=== PATIENT | female | born 1950 | race Caucasian/White ===

== ENCOUNTER 2024-12-27 14:37 | Outpatient (REF) | payer MEDICARE, SELFPAY | END 2024-12-27 14:38 | disposition home or self-care (01) | LOC: HO.XRAY 14:37 | PROVIDERS: PCP Internal Medicine; Visit Provider Psychiatry & Neurology Neurology | DX: Z13.89 Encounter for screening for other disorder (principal) ==

== ENCOUNTER 2025-01-12 14:42 | Outpatient (REF) | payer MEDICARE, SELFPAY ==
--- NOTE | ~2025-01-12 | FL_ITS ---
EXAMINATION: Modified Barium Swallow CLINICAL INFORMATION: Dysphagia. COMPARISON: None. TECHNIQUE: Modified barium swallow was performed under lateral fluoroscopy with patient in standing position. Barium mixed with solids and liquids of different consistencies was administered by the speech pathologist. Examination was recorded in the fluoroscopy suite. FINDINGS: Normal swallow function. No penetration or aspiration identified. FLUOROSCOPY TIME: 1 minute, 4 seconds Number of Spot Images: N/A DOSE AREA PRODUCT: 164.1 uGy-m2 (microgray-meter squared) FL/FL Modified Barium Swallow IMPRESSION: No evidence of laryngeal penetration, glottic or subglottic aspiration. Refer to the speech therapy report for further clarification. Electronically signed by: Enrique Gomez MD 01/12/2025 03:53 PM EDT
--- OUTSIDE RECORDS SUMMARY | 2025-01-12 16:55 | XMS_ITS | Clinical Summary ---
Author Organization [facility] Address [address] [place] [address] Care Team Providers Care Sandal Parts Assembler Name Role Phone Aisha Fontana MD Primary Care Provider +1- [phone] Allergies Active Allergy Reactions Criticality Noted Date Comments Latex Hives,Rash/Dermatitis Medium 11/09/2018 Medications Medication Sig Dispensed Refills Start Date End Date Status timolol (TIMOPTIC) 0.5 % ophthalmic solution Administer 1 drop to both eyes 2 times a day. Active sertraline (ZOLOFT) 50 MG tablet Take 1.5 tablets (75 mg total) by mouth daily. 04/28/2024 Active traZODone (DESYREL) 50 MG tablet TAKE 2 TABLETS BY MOUTH DAILY AT BEDTIME Active carbidopa-levodopa (SINEMET) 25-100 MG per tabletIndications:Par kinson's disease without dyskinesia or fluctuating manifestations (HCC) Take 1 tablet by mouth 3 (three) times a day. 270 tablet 3 06/28/2024 Active Active Problems Problem Noted Date Diagnosed Date Anxiety 06/28/2024 Basal cell carcinoma (BCC) 06/28/2024 Hyperlipidemia 06/28/2024 Parkinson's disease without dyskinesia or fluctuating manifestations 06/28/2024 Leukopenia 2023 Dyspnea on exertion 09/23/2022 Essential hypertension 11/16/2020 Overview (06/28/2024): Diet controlled Last Assessment & Plan: Well-controlled, continue low-sodium diet Graves' disease in remission 10/28/2018 Overview (06/28/2024): Diagnosed in 2018, treated successfully with methimazole. Had ophthalopathy Last Assessment & Plan: Asymptomatic, recheck TSH Osteoporosis of lumbar spine 10/28/2018 Overview (06/28/2024): Dx by previous PCP, no treatment recommend, repeat bone density 2021 spine T score -2.5, femur -2.2 Last Assessment & Plan: Fracture risk was reviewed. Recommend continued diet and exercise. She will discuss this with her disease management nurse at an upcoming appointment. 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 Family History Medical History Relation Name Comments Liver disease Brother No Known Problems Daughter 1 No Known Problems Daughter 2 COPD Father Hyperlipidemia Father Hypertension Father Varicose Veins Father Hyperlipidemia Mother Hypertension Mother Tremor Mother No Known Problems Sister Relation Name Status Comments Brother Alive Daughter 1 Alive Daughter 2 Alive Father Mother Sister Alive Social History Tobacco Use Types Packs/Day Years Used Date Smoking Tobacco: Never Smokeless Tobacco: Never Alcohol Use Standard Drinks/Week Comments Not Currently 0 (1 standard drink = 0.6 oz pur e alcohol) Sex and Gender Information Value Date Recorded Sex Assigned at Not on file Gender Identity Not on file Sexual Orientation Not on file Last Filed Vital Signs Vital Sign Reading Time Taken Comments Blood Pressure - - Pulse - - Temperature - - Respiratory Rate - - Oxygen Saturation 91% 06/28/2024 1:54 PM EDT Inhaled Oxygen Concentration - - Weight 67.1 kg (148 lb) 06/28/2024 1:54 PM EDT Height 171.5 cm (5' 7.5 ) 06/28/2024 1:54 PM EDT Body Mass Index 22.84 06/28/2024 1:54 PM EDT Plan of Treatment Health Maintenance Due Date Last Done Comments Hepatitis C Virus Screening 1950 DTaP/Tdap/Td Vaccines (1 - Tdap) 01/07/1968 Mammogram 1989 Colonoscopy 1994 Pneumococcal Vaccines 50+ (1 of 1 - PCV) 1999 Zoster (Shingles) Vaccine (1 of 2) 1999 DXA Bone Density (Females,Ages 65 and older) 2014 RSV Vaccine 60 years and older and Patients (1 - 1-dose 75+ series) 01/07/2024 COVID-19 Vaccine ( - season) 2024 07/15/2023, 01/08/2022, 07/27/2021, Additional history exists Influenza Vaccine Completed 07/20/2024, , 07/10/2022, Additional history exists Hepatitis B Vaccines Aged Out No long er eligible based on patient's age to complete this topic Care Teams Sandal Parts Assembler Relationship Specialty Start Date End Date Aisha Fontana MD [address] [place] [address] PCP - General Internal Medicine 05/31/24
--- OUTSIDE RECORDS SUMMARY | 2025-01-12 16:55 | XMS_ITS | Clinical Summary ---
Author Organization [facility] Address [address] [place] [address] Care Team Providers Care Value Analysis Coordinator Name Role Phone Aisha Fontana MD Primary Care Provider +1- [phone] Allergies Active Allergy Reactions Criticality Noted Date Comments Latex 12/09/2023 Medications Medication Sig Dispensed Refills Start Date End Date Status timolol (TIMOPTIC) 0.5 % ophthalmic solution 1 drop 2 (two) times a day. 0 Active betamethasone, augmented, (DIPROLENE) 0.05 % gel Apply topically 2 (two) times a day. 0 Active Active Problems No known active problems Social History Tobacco Use Types Packs/Day Years Used Date Smoking Tobacco: Never Smokeless Tobacco: Never Tobacco Cessation:Counseling Given: Not Answered Alcohol Use Standard Drinks/Week Comments Yes 0 (1 standard drink = 0.6 oz pur e alcohol) Social Sex and Gender Information Value Date Recorded Sex Assigned at Female 12/01/2023 3:57 PM EST Gender Identity Not on file Sexual Orientation Not on file Job Start Date Occupation Industry Not on file Not on file Not on file Last Filed Vital Signs Vital Sign Reading Time Taken Comments Blood Pressure 145/87 12/23/2023 11:08 AM EDT Pulse 77 12/23/2023 11:08 AM EDT Temperature 36.8 ??C (98.2 ??F) 12/23/2023 11:08 AM E DT Respiratory Rate - - Oxygen Saturation 99% 12/23/2023 11:08 AM EDT Inhaled Oxygen Concentration - - Weight 71.2 kg (157 lb) 12/23/2023 11:08 AM EDT Height - - Body Mass Index - - Plan of Treatment Health Maintenance Due Date Last Done Comments Hepatitis C Screening 1950 Depression Screening 1961 Preventative Health Evaluation 1967 DTap / Tdap / Td (1 - Tdap) 01/07/1968 Fall Risk Assessment 2014 Osteoporosis Screening (DEXA Scan) 2014 Pneumococcal Vaccine (3 of 3 - PPSV23 or PCV20) 07/17/2023 07/17/2018, 07/16/2013 RSV Adult > 60+ Yrs or (1 - 1-dose 75+ series) 01/07/2024 COVID-19 Vaccine (3 - 2023-2 5 season) 2024 11/22/2020, 10/25/2020 Influenza Vaccine (#1) 2024 0, 06/15/2019, 07/17/2018 Shingrix-Zoster Vaccine Completed 08/21/20 19, 06/21/2019 Hepatitis B Vaccines Aged Out No long er eligible based on patient's age to complete this topic RSV Ped < 20 months Aged Out No longe r eligible based on patient's age to complete this topic Care Teams Value Analysis Coordinator Relationship Specialty [place] [address] [place] [phone] PCP - General Internal Medicine 12/01/23
--- OUTSIDE RECORDS SUMMARY | 2025-01-12 16:55 | XMS_ITS ---
Author Organization [facility] Address [address] [place] [address] Care Team Providers Care Marine Welder Name Role Phone Aisha Fontana Primary Care Provider Unavaila Nomi Dominguez Unavailable [phone] Quach Encounters Encounter Location Date Provider Diagnosis [facility] [address] [address] 02/23/2024 Nomi Thompson Plan Of Treatment No Information Progress Notes * Ngozi MOREIRA HDOB:12/1949 (75 yo F)Acc No.[id number]:02/23/2024 Progress Note Patient:?SRIDHARFRANDYRAJ Ngozi H Provider:?Nomi Thompson DPM :1950???Age:74 Y???Sex:Female D ate:02/23/2024 Address:[address] [place] [phone] Pcp:Aisha Fontana Subjective: * Chief Complaints: * ???1. Dr. Quach. * Medical History:? Objective: * Vitals:? Assessment: Plan: * Treatment: * Images: * The named appointment provid er may or may not be the originator of this progress note, and it is not deemed complete until electronically signed by the appointment provider. Sign off status: Pending * Provider:?Nomi Thompson DPM Date:?2023 Generated for Mayte gonsalez/Truong/Yuan on:?01/12/2025 04:54 PM EDT
--- OUTSIDE RECORDS SUMMARY | 2025-01-12 16:55 | XMS_ITS | Encounter Summary ---
Author Organization [facility] Address [address] [place] [address] Care Team Providers Care Strategic Partnership Specialist Name Role Phone Aisha Fontana MD Primary Care Provider +1- [phone] Encounter Details Date Type Department Care Team (Late st Contact Info) Description 09/13/[address] [facility] Neurology [address] [place] [phone] Min Felipe MD [address] [place] [address] [address] [place], [place] [id number] Social History Tobacco Use Types Packs/Day Years Used Date Smoking Tobacco: Never Smokeless Tobacco: Never Alcohol Use Standard Drinks/Week Comments Not Currently 0 (1 standard drink = 0.6 oz pur e alcohol) Sex and Gender Information Value Date Recorded Sex Assigned at Not on file Gender Identity Not on file Sexual Orientation Not on file documented as of this encounter Miscellaneous Notes * Telephone Encounter - Winnie Kaplan MA - 09/14/2024 3:56 PM EST I called the patient's daughter and left a voicemail. I told her to call the office if she has any questions. * Telephone Encounter - Winnie Kaplan MA - 09/13/2024 4:22 PM EST The patient???s daughter called in to ask if it is okay for the patient to join a program associated with speech therapy called Speak Out. She also mentioned noticing an EMG request still on file butstated that the patient has been doing well taking SINEMET 25-100 mg. She would like to know if theEMG is still necessary. Please advise. documented in this encounter Plan of Treatment Not on file documented as of this encounter Visit Diagnoses Not on filedocumented in this encounter Care Teams Strategic Partnership Specialist Relationship Specialty Start Date End Date Aisha Fontana MD [address] [place] [address] PCP - General Internal Medicine 05/31/24 documented as of this encounter
--- OUTSIDE RECORDS SUMMARY | 2025-01-12 16:55 | XMS_ITS | Encounter Summary ---
Author Organization [facility] Address [address] [place] [address] Care Team Providers Care Inside Sales Territory Manager Name Role Phone Aisha Fontana MD Primary Care Provider +1- [phone] Encounter Details Date Type Department Care Team (Late st Contact Info) Description 10/13/2024 Telephone [facility] Neurology [address] [place] [phone] Min Felipe MD [address] [place] [address] [address] [place], [place] [phone] Social History Tobacco Use Types Packs/Day Years [...] Telephone Encounter - Winnie Kaplan MA - 10/13/2024 4:59 PM EST The patient called requesting a referral for speech therapy. Additionally, the patient's daughter submitted a message through [employer] asking for the same referral. The patient mentioned that she is interested in the Speak Out program as well because it is online and would like to know which option you would recommend. documented in this encounter Plan of Treatment Not on file documented as of this encounter Visit Diagnoses Not on filedocumented in this encounter Care Teams Inside Sales Territory Manager Relationship Specialty Start Date End Date Aisha Fontana MD [address] [place] [address] PCP - General Internal Medicine 05/31/24 documented as of this encounter
--- OUTSIDE RECORDS SUMMARY | 2025-01-12 16:56 | XMS_ITS | Data Portability ---
Author Organization [place] [facility] Address [address] [place] [phone] Care Team Providers Care Inspector Aluminum Boat Name Role Phone JESSICA QUIÑONEZ Primary Care Provider Assessment No assessment recorded. Plan of Treatment Reminders Order Date Submit Date Provider Last Modified By Organization Details Last Modified Time Details Appointments None record ed. Lab None record ed. Referral None record ed. Procedures None record ed. Surgeries None record ed. Imaging None record ed. Medication Orders None record ed. Patient TargetsNo targets recorded. Patient InstructionsNo instructions recorded. Reason for Referral None Reported. Results Created Date Observation Date Name Description Value Unit Range Abnormal Flag Note LastModifiedBy Organization Detail LastModifiedTime 03/30/20 audio gram No observ ation record ed. BARCODE Not Available 2023 09:13:39 Result Notes None recorded. Problems Name Problem SNOMED Code Status Onset Date Resolution Date Notes Provider Name and Address Organization Details Recorded Time Sensorineur al hearing loss of bilateral ears 723512986 Active 2023 SARAY HDZ, HUY [address] [address], [place], [phone], [facility] - [facility] 4 16:19:26 Impacted cerumen of bilateral ears 0414345249266 108 Active 2023 KRISTYN LEON MD [address] [place] [address], [phone], [facility] - [facility] 16:44:14 Laceration of left ear region 5376014657588 9107 Active 2023 KRISTYN LEON MD [address] [place], [phone], [facility] - [facility] 16:48:26 Myoclonus of tensor tympani muscle 129060888 Active 2023 KRISTYN LEON MD [address] [address], [place], [phone], [facility] - [facility] 16:48:51 Problem Notes None recorded. Procedures Surgical History Date Name Laterality Status Provider Name and Address Organization Details Recorded Time 03/29/20 Comp Audio with Tymps (53998 & 77875) completed HUY BORJA [address] [address], [place], [address], [facility] - [facility] 03/29/2024 16:19:34 03/29/20 Cerumen removal with microscope bilateral completed KRISTYN LEON MD [address], [address], [facility] - [facility] 03/29/2024 16:29:18 total knee replacement completed Joann Bee [facility] 03/29/2024 16:12:38 Imaging Results Imaging Date Name Status LastModified by Organiz ation Details LastModified Time 03/30/2024 audiogram completed BARCODE Information no t available 03/30/2024 09:13:39 Procedure Notes None recorded. Medical Equipment None Reported. Allergies No known drug allergies Medications Name Sig Start Date Stop Date Status Note LastModified by Organization Details LastModified Time amoxicillin 500 mg capsule TAKE 4 CAPSULES BY MOUTH 1 HOUR PRIOR TO APPOINTME NT 03/29 completed Not Available Not Available Not Available buspirone 5 mg tablet TAKE 1 TABLET BY MOUTH THREE TIMES A DAY 03/29 completed Not Available Not Available Not Available trazodone 50 mg tablet TAKE 2 TABLETS BY MOUTH DAILY AT BEDTIME 03/29 completed Not Available Not Available Not Available amoxicillin 500 mg tablet TAKE 1 TABLET BY MOUTH TWICE A DAY FOR 10 DAYS 03/29 completed Not Available Not Available Not Available ofloxacin 0.3 % ear drops INSTILL 5 DROPS INTO EAR(S) TWICE A DAY FOR 7 DAYS 03/29 completed Not Available Not Available Not Available buspirone 10 mg tablet TAKE 1 TABLET BY MOUTH THREE TIMES A DAY 03/29 completed Not Available Not Available Not Available estradiol 0.01% (0.1 mg/gram) vaginal cream INSERT 1 GRAM VAGINALLY EVERY FRIDAY AND 03/29 completed Not Available Not Available Not Available timolol maleate 0.5 % eye drops INSTILL 1 DROP INTO BOTH EYES IN THE MORNING active Not Available Not Available No t Available hydroxyzine HCl 10 mg tablet TAKE 1 OR 2 TABLETS BY MOUTH EVERY DAY AT BEDTIME NEEDED FOR ANXIETY 03/29 completed Not Available Not Available Not Available sertraline 50 mg tablet TAKE 1 AND 1/2 TABLETS DAILY BY MOUTH active Not Available Not Available No t Available hydroxyzine pamoate 25 mg capsule TAKE 1 CAPSULE BY MOUTH EVERY DAY AT BEDTIME NEEDED FOR ANXIETY 03/29 completed Not Available Not Available Not Available Murine Ear Wax Removal System 6.5 % drops PLACE 5 DROPS IN LEFT EAR 2 TIMES A DAY 03/29 completed Not Available Not Available Not Available ciclopirox 0.77 % topical cream APPLY 1 APPLICATI ON EXTERNALL Y TWICE A DAY FOR 90 DAYS 03/29 completed Not Available Not Available Not Available Vitals None Recorded Social History None recorded. Functional Status None recorded. Mental Status None recorded. Family History Nothing Reported. Medical History Condition Response Depression Y Arthritis Y Anxiety Y Thyroid Problems Y Gynecological HistoryNo gynecological history recorded. Obstetrics History GPAL:G 0 P 0 0 0 0 Past Encounters Encounter ID Performer Location Encounter Start Date Encounter Closed Date Diagnosis/Indication Diagnosis SNOMED-CT Code Diagnosis ICD10 Code Diagnosis Note [id number] KRISTYN LEON MD [facility] on [address] [place] [address] 03/29/2024 15:47:59 03/29/2024 16:41:08 Sensorineural hearing loss of bilateral ears 782949098 H90.3 Audiologic al evaluation results:[facility] ear:{{Norm al Mild* M oderate Mo derately-s evere Griselda re Profoun d}} {{hearing sloping to a mild slopi ng to a moderate* sloping to moderately severe slo ping to severe slo ping to profound f lat high frequency low frequency mid frequency cookie bite durbin curve}} {{with sen sorineural hearing loss with* cond uctive hearing loss with mixed hearing loss with}} {{excellen t good* fa ir poor no t measurable }} word recognitio n.Left ear:{{Norm al Mild* M oderate Mo derately-s evere Griselda re Profoun d}} {{hearing sloping to a mild slopi ng to a moderate* sloping to moderately severe slo ping to severe slo ping to profound f lat high frequency low frequency mid frequency cookie bite durbin curve}} {{with sen sorineural hearing loss with* cond uctive hearing loss with mixed hearing loss with}} {{excellen t good* fa ir poor no t measurable }} word recognitio n. Tympanomet ry:Right Ear:{{Type A Type As Type Ad* Type C Type C, shallow & rounded Ty pe B Type B with large volume Cou ld not maintain a hermetic seal}}Left Ear:{{Type A* Type As Type Ad Type C Type C, shallow & rounded Ty pe B Type B with large volume Cou ld not maintain a hermetic seal}}Rosemarie ent given A copy of her audiogram to bring to her patient resource specialist to ensure that her hearing aids are adjusted to match her current level of hearing loss. Since her hearing aids are about 3 years old they should still be in good working condition and should not need to be replaced for that another 2 years. She is welcome to come back to see one of our audiologis t should she want to pursue new amplificat ion technology Impacted c erumen of bilateral ears [id number] 195271 H61.23 Laceration of left ear region [id number] 5589453 S01.312A Excess cerumen removed from the right side and dry clot and scabbing removed from the left ear canal. I suspect there was a laceration of the left canal due to vigorous irrigation which has since healed. Tympanic membrane is normal without signs of perforatio n. Reassuranc e given in this regard. In light of her tendency to have excess cerumen collection I recommende d follow-up with one of our physician assistants in 6 months for ear cleaning. Myoclonus of tensor tympani muscle 045979542 G25.3 Patient's symptoms of fluttering in the left ear intermitte ntly is likely to represent myoclonus of the tensor tympani or stapedius muscle. We discussed the pathophysi ology of this process. Recommende d magnesium supplement ation. This is likely to disappear over time without any additional interventi on. Health Concerns Section Related Observation LastModified by Organization Detai ls LastModified Time None Recorded Concern Status LastModified by Organization Details LastModified Time None Recorded Advance Directives Directive None Recorded Payers Encounter Date Sequence Insurance Name Policy Number Policy Curtis Covered Member ID Curtis Member ID Guarantor Name 03/29/2024 1 [employer] [id number] 1 Ngozi Jordyn [id number] Ngozi Jordyn Notes Date Note Type Note Provider Name and Address Organization Details Recorded Time 03/29/2024 text/html 74-year-old david shannon referred for evaluation of her left ear. In January she began noticing some fluttering sensation in the left ear. She was seen by her primary care physician who noted excess cerumen and recommended Debrox drops. Patient was subsequently seen at urgent care who had vigorous flushing of her ear canals which resulted in bleeding. She was given amoxicillin and topical antibiotic drops. She consulted her daughters who are physician assistants who recommended that she use the drops but not the amoxicillin. Follow-up examination at her primary care physician's office noted dried blood in the canal and some concern for perforation. She did have an MRI scan of the brain which showed no retrocochlear pathology. Patient currently using binaural amplification dispensed at [facility] in [place]. These devices are about 3 years old KRISTYN LEON MD [address] [place] [address], [phone], [facility] 03/29/2024 16:51:45 OBGyn Episode No OBEpisode recorded.
== END 2025-01-12 14:43 | disposition home or self-care (01) ==
LOC: HO.XRAY 14:42
PROVIDERS: PCP Internal Medicine; Visit Provider Psychiatry & Neurology Neurology
DX: G20.A1 Parkinson's disease without dyskinesia, without mention of fluctuations (principal)
CPT/HCPCS: 74230; 92611

== ENCOUNTER → 2025-01-12 14:48 | Outpatient (BNV) | payer MEDICARE, SELFPAY | PROVIDERS: PCP Internal Medicine; Visit Provider Radiology Diagnostic Radiology | DX: R13.10 Dysphagia, unspecified (principal) | CPT/HCPCS: 74230 ==

== ENCOUNTER 2025-02-02 12:55 | Outpatient (RCR) | payer MEDICARE, SELFPAY ==
--- NOTE | 2025-01-13 12:48 | MHC.SL.IMP ---
Date of Plan of Treatment: 01/12/25 Onset of Symptoms/Illness: 06/14/24 Date Treatment Started: 01/12/25 Admitting Diagnosis: Parkinson?s disease without dyskinesia, without mention of fluctuations Primary Speech & Language Diagnosis: R13.10 Dysphagia Secondary Speech & Language Diagnosis: R49.0 Dysphonia Reason for Today's Visit: 19053 Modified Barium Swallow Study Pre-evaluation Dietary Consistencies: Regular Pre-evaluation Liquid Consistency: Thin Pre-evaluation Medication Administration: Whole with Liquid Medical History: Modified Barium Swallow Study Fluoroscopic Evaluation of Swallowing Function CPT Code 55134 Evaluation Year: 2024 Reason for Study: Underlying PD Referring Physician: Piero Brush MD Evaluating Clinician: Joelle Rm MA, CCC-MANAGER CLINICAL INFORMATICS Study Number: 1 Patient Name: Ngozi Cobb Status: Outpatient, Ambulatory Age: 75 Gender: Female Medical History Parkinson?s Disease Current (pre-evaluation) Intake/Diet: Route: PO Diet Grade: Regular Liquid Consistencies: Thin Pre-Study Functional Oral Intake Scale (FOIS): 7- Total oral intake with no restrictions Pain: None reported at time of study SUBJECTIVE: Patient is a 75 year old female referred for a modified barium swallow study (MBSS) by her neurologist, Piero Brush MD, to assess for oropharyngeal dysphagia. Patient reports she was diagnosed with Parkinson?s Disease this past June. Patient has completed the LSVT BIG with Physical Therapy at [facility] and is scheduled for a voice evaluation here on 02/02 for the LSVT LOUD program. Patient denies coughing or choking while eating and drinking. She denies odynophagia and globus sensation. Patient says she is able to eat and drink without difficulty, but has some trouble swallowing large pills. Patient says pills ?go down slowly? and she needs to take extra sips of her water to relieve that sensation. Oral Motor Exam Facial Symmetry: Symmetrical Mouth Occlusion: Normal Oral-Facial Teeth Characteristics: Intact/Normal Oral-Facial Lip Pucker Description: Normal Oral-Facial Smile (Lips) Description: Normal Oral-Facial Puff Cheeks Description: Normal Tongue Size: Normal Tongue Excursion Description: Normal Tongue Range of Movement Description: Reduced Tongue Speed of Movement Description: Reduced Tongue Strength of Movement (against opposing pressure): Normal Tongue Movement Characteristics: Normal/Absent Tongue Movement Miscellaneous Observation: Tongue oscillated in the center of the oral cavity w/ lateralized movements Is patient able to manage secretions?: Yes Is patient able to produce volitional cough?: Yes Food and Liquid Trials: Oral Impairment: Lip Closure: Did not test Oral Impairment: Tongue Control During Bolus Hold: 0=Cohesive bolus between tongue to palatal seal Oral Impairment: Bolus Preparation/Mastication: 0=Timely and efficient chewing and mashing Oral Impairment: Bolus Transport/Lingual Motion: 1= Delayed initiation of tongue motion Oral Impairment: Oral Residue: 2=Residue collection on oral structures Oral Impairment:Initiation of Pharyngeal Swallow: 0=Bolus head at posterior angle of ramus (first hyoid excursion) Pharyngeal Impairment: Soft Palate Elevation: 0=No bolus between soft palate (SP)/pharyngeal wall (PW) Pharyngeal Impairment: Laryngeal Elevation: 1=Partial thyroid cartilage/arytenoids to epiglottic petiole movement Pharyngeal Impairment: Anterior Hyoid Excursion: 1=Partial anterior movement Pharyngeal Impairment: Epiglottic Movement: 0=Complete inversion Pharyngeal Impairment: Laryngeal Vestibular Closure:: 1=Incomplete: narrow column air/contrast in laryngeal vestibule Pharyngeal Impairment: Pharyngeal Stripping Wave: 0=Present: complete Pharyngeal Impairment: Pharyngeal Contraction: Did not test Pharyngeal Impairment: Pharyngoesophageal Segment Openin=Complete distension and complete duration: no obstruction of flow Pharyngeal Impairment: Tongue Base (TB) Retraction: 0=No contrast between tongue base and posterior pharyngeal wall Pharyngeal Impairment: Pharyngeal Residue: 0=Complete pharyngeal clearance Pharyngeal Impairment: Esophageal Clearance Upright Position: Did not test Impressions and Recommendations OBJECTIVE: Time-out: performed at 15:00 Evaluation Start: 14:45; Stop: 14:50 Patient Positioning: Standing Viewing Planes: LATERAL ONLY Contrast: MBSImP? Standardized Protocol using commercially prepared, standardized Barium viscosities, including: Varibar? THIN LIQUID (40% w/v, <15 cps) , Varibar? PUDDING (40% w/v, <4748-8230 cps) , 1/2 Shortbread Cookie (1 x1 x.25 ) MBSImP ID: [id number] MBSImP Results: Lip closure for intraoral bolus containment could not be assessed due to logistical reasons not related to physiologic impairment. Tongue control during bolus hold maintained a cohesive bolus held between tongue to palate seal. Bolus preparation and mastication resulted in timely and efficient chewing and mashing. Bolus transport/lingual motion demonstrated delayed initiation of tongue motion. Oral residue was a collection on oral structures. Initiation of the pharyngeal swallow occurred as the bolus head reached the posterior angle of the mandibular ramus. Soft palate elevation resulted in no bolus between the soft palate and the pharyngeal wall. Laryngeal elevation was decreased, with partial superior movement of the thyroid cartilage/partial approximation of the arytenoids to the epiglottic petiole. Anterior hyoid excursion demonstrated partial anterior movement. Epiglottic movement resulted in complete inversion. Laryngeal vestibular closure was incomplete, with a narrow column of air/contrast noted within the laryngeal vestibule at the height of the swallow. Pharyngeal stripping wave was present and complete. Pharyngeal contraction could not be determined due to logistical reasons not related to physiologic impairment. Pharyngoesophageal segment opening was completely distended for complete duration with no obstruction of bolus flow. Tongue base retraction allowed no contrast between the retracted tongue base and the posterior pharyngeal wall. Pharyngeal residue was not present. There was complete pharyngeal clearance. Esophageal clearance in the upright position could not be assessed due to logistical reasons not related to physiologic impairment. Oral Impairment Score: 3 (absence of score, component 1) Pharyngeal Impairment Score: 3 (absence of score, component 13) Esophageal Impairment Score: --- (absence of score, component 17) Laryngeal Penetration and Aspiration: Neither penetration nor aspiration was observed in today's study with Cookie, Pudding-thick. Penetration was observed in today's study. Thin Contrast entered the airway, remained above the vocal folds, and was ejected from the airway. ASSESSMENT: This exam was conducted by the radiologist and the speech pathologist. Patient was standing for lateral view only and fed herself without difficulty. Patient trialed thin (via individual and sequential cup sips), puree, and regular solid texture. Patient demonstrated good oral containment and tongue control, with no premature posterior escape. Mastication was timely and efficient, with complete oral clearance after secondary swallows. Posterior lingual motion was mildly delayed at times. Pharyngeal swallow trigger was timely. No evidence of nasopharyngeal reflux. Incomplete laryngeal elevation and incomplete laryngeal vestibular closure. There was a singular episode of flash penetration, with a trace amount of contrast momentarily entering and then spontaneously ejecting from the airway as patient took sequential sips of thin liquid, with no subsequent aspiration. No penetration or aspiration when patient took individual sips of thin liquid and on trials of puree and harder solid. Complete pharyngeal clearance seen with both liquids and solids. Liquid Intake Recommendation: Thin Liquid Intake Strategies: Small Sips Dietary Recommendations: Regular Medication Administration: Whole with Liquid Please contact the pharmacy regarding appropriate crushable or liquid drug formulations that are available whenever modified delivery is recommended. Compensatory Strategies Recommended: Sitting Upright (90 deg), Small Bites and Sips, Alternate Liquids/Solids, Rate of Ingestion Change Supervision during eating and or drinking: None Needed Recommendation for Speech Therapy: NA:Typical Evaluation Text Comment: PLAN: Intake Recommendations: Route: PO Diet Grade: Regular Liquid Consistencies: Thin Post-Study Functional Oral Intake Scale (FOIS): 7- Total oral intake with no restrictions Episode of flash penetration as patient took sequential sips of thin liquid. No evidence of aspiration. Good oral and pharyngeal clearance. Therapy Recommendations: Diet modification and further speech intervention for dysphagia is not warranted at this time, as patient?s swallow is deemed functional in the oral and pharyngeal phases. MANAGER CLINICAL INFORMATICS discussed findings with patient after the exam. Patient verbalized understanding and denied having any further questions at this time. Recommend pills be taken with multiple sips of liquid or in a bite of puree. Patient is advised to consult with Pharmacy regarding the proper administration of medications. Patient is scheduled for a voice evaluation later this month. Clinician - Supplemental, Miscellaneous Communication: It is important to note MBSS objective studies are snapshots in time and Patient function might vary with factors such as time of day or concomitant medical conditions. For this reason, the final treatment plan for this patient should rest with their medical care team. Additional recommendations should be considered with the totality of the Patient in mind. Thank for the opportunity to participate in the care of this patient. If you have any questions about the content of this report, please contact the [facility] at [facility]. Education: Education regarding findings from today's study and plans for therapy were provided to Patient only through Verbal Instruction. Understanding was expressed by the Patient only. Heater Mechanic Clinician/Clinical Fellow: No Supervisory Statement: N/A Speech Language Pathologist: Joelle Rm M.A., CCC-MANAGER CLINICAL INFORMATICS
--- NOTE | 2025-02-09 15:09 | MHC.SP.ADU ---
Referring provider: Piero Brush MD Reason for Referral: LSVT Evaluation and treatment Type of Treatment: 05251 Behavioral and Qualitative Analysis of Voice and Resonance Date of Plan of Treatment: 02/02/25 Onset of Symptoms/Illness: 10/21/24 Date Treatment Started: 02/02/25 Medical Diagnosis: Parkinson's Disease Primary Speech Language Diagnosis: G20 Parkinson?s disease Secondary Speech Language Diagnosis: R49.0 Dysphonia History Ngozi Cobb is a 74 year old woman who was referred to this clinic by her Neurologist, Dr. Piero Brush to be assessed for LSVT Loud therapy secondary to a diagnosis of Parkinson's Disease. Ngozi has recently been diagnosed with Parkinson's by Dr. Brush, which she reported having first been made aware of symptoms last fall by her daughters expressing concern. Ngozi has two adult daughters who are both Physician's Assistants. While visiting [place] and walking the hills with her daughters, they noticed she was having some irregular movement difficulties. Ngozi was a bit affronted by their concerns, but agreed to be checked out by a physician which lead to a referral to a neurologist. She reported that since seeing Dr. Brush in October, she has already completed a month intensive PT program LSVT BIG and is interested in LSVT Loud for her voice, which others have reported can sometimes be soft. Ngozi reports that she has been doing and enjoying Crossfit with a program in [place] where she lives, though she reports she does not attempt to do some of the more arduous lifting exercises. She reports she is able to do squats even though she has had double knee replacement. 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 Ngozi was when her daughters were young, with her suddenly dying from a heart condition. She raised her children as a single parent and remains very close to her daughters, although she notes she can be rattled by their oversight of her. She lives in a private residence in [place]. [place]. Medical History: Anxiety, Graves Disease, Hearing Loss, Hyperlipidemia, Hypertension, Chronic Venous insufficiency, osteoporosis Medication List: L-Dopa, Zoloft, Trazadone, Multivit/ Bone Vitamins, D3, Timolol eye gtts. Recent Hospitalizations: No Respiratory Needs: Room Air Patient Orientation: Alert & Oriented x 4 Social History: Employment Status: Retired Highest level of education obtained: Completed Bachelor's Current Living Situation: Lives alone in a private residence in [place] Assistive Devices in use: Glasses/Contacts Past Speech Language Therapy: None Other Therapies Seen in Current Calendar Year: Physical Therapy Other: LSVT BIG [place] [place]ing History: Dysphagia Specific: Within Functional Limits Comments: Ngozi had an MBSS Evaluation with Joelle Rm MA, CCC/MANAGER PROGRESSIVE CARE on 01/12/25, with findings mostly WFL. Please see this evaluation for more details on swallow function. Reported Speech, Language, Cognition difficulties: Voice Comments: Ngozi has concerns about the audibility of her voice and is interested in LSVT Loud Therapy. Quality of Life: Excellent Patient Stated Goal of Speech-Language Therapy: Assess for appropriateness for LSVT Loud Therapy Assessment Informal Voice Assessment: Voice Loudness: Normal Voice Nasal Resonance: Normal Voice Oral Resonance: Normal Voice Phonatory-based Quality: Tremor Voice Pitch: Normal Voice Other Observations: Clinical Impression: Impaired Clinicial Observations: Ngozi was administered the LSVT Loud Evaluation protocol. On six samples of Loud AH Ngozi demonstrated a range of dB of 83-85; and average dB of 84; duration range 16-22 sec and average duration of 18.5 seconds. Results indicate good ability to sustain volume and strong respiratory support for phonation. On pitch glides to highest note in six samples, Ngozi's highest Hz was 349 and range of highest pitch was 330-349. Unstable tone, or tremulous voice was noted. On pitch glides to lowest sustained note in six samples, Ngozi's lowest Hz was 131, and range of lowest sustained pitch was 131-64. On this sampling, Ngozi was noted to strain to reach a lower pitch and vocal quality was unstable with pitch breaks. On reading a phonemically balanced paragraph length material ( [place] ), Ngozi demonstrated a range of dB of 30-87 and an average dB of 62. Vocal instability, or tremor was noted throughout the reading. On phonemically balanced sentences read aloud, she also demonstrated phonation instability/tremor. Ngozi's s/z ratio was .94 which is WNL, and p/t/k rate was also WNL. Summary/Conclusions: Ngozi presented with adequate volume in sustained production of sound and in general in her conversational speech, however with the added difficulty of reading(which is additionally challenging for her due to her thyroid eye disease), her volume notably became softer. With the exception of sustaining a Loud AH, Ngozi evidenced unstable phonation in her voice, which was perceptually tremulous. Impressions and Recommendations Summary: Ngozi was referred by her neurologist for LSVT Loud therapy secondary to her diagnosis of Parkinson's Disease and hypophonia. On evaluation today, Ngozi demonstrated softer volume only in the context of reading aloud, a speaking task that has increased challenge for her due to her eye condition (Thyroid Eye Disease). However in conversation and throughout the assessment, she demonstrated a mildly tremulous voice and unstable phonation, which indicates some laryngeal/vocal fold process, likely related to Parkinson's. LSVT intervention is likely to help improve her overall phonation strength and tone, and is indicated at this time. It is recommended that Ngozi return for this intensive, four week treatment, at the next available opening (waitlisted at this clinic). Ngozi has expressed strong motivation and interest in participating in this approach to therapy. Impact on Daily Function/Activity Limitations: Daily Activities: Mild Interpersonal Interactions: Mild Community: Mild Prognosis for Improvement: Excellent Comment: Ngozi is highly motivated and an excellent candidate for therapy. Recommendation for Speech Therapy: Outpatient Speech Therapy Frequency/Duration: Four, sixty minute therapy sessions weekly for a period of four weeks. Date Range for Service Requested: One Month Time to Reassess: PRN Nursing Home Goals: Ngozi will increase vocal volume and vocal clarity using LSVT interventions for conversational and functional speech as observed in 4/5 contexts. Short Term Goals: Goal # : 1.1 Ngozi will sustain an open vowel sound at normal vocal volume range (SPL >80) for greater than 10 seconds in ten trials 1.2 Ngozi will sustain an open vowel sound with a scale to an increased pitch with vocal volume range of SPL 70-80 for at least five seconds in ten trials 1.3 Ngozi will sustain an open vowel with a scale to a decreased pitch with vocal volume range of MANAGER PROGRESSIVE CARE 70-80 for at least five seconds in ten trials. Goal Status: Goal# : 2.1 Ngozi will produce and sustain normal vocal volume range ([id number]) when producing functional words in ten trials 2.3 Ngozi will produce and sustain normal vocal volume range ([id number]) when producing functional communication phrases in ten trials Goal Status: Goal # : 3.1 Ngozi will produce and sustain normal vocal volume range ([id number]) when reading a paragraph length passage 3.2 Ngozi will produce and sustain normal vocal volume range ([id number]) when engaged in conversational speech 3.3 Ngozi will produce and sustain normal vocal volume range ([id number]) when engaged in functional communication activities (e.g. speaking on the phone, communicating in community contexts) Goal Status: Patient Education: Completed: Yes Patient/Caregiver Education: Described Results of Evaluation Patient expressed understanding of evaluation Patient agrees with goals and treatment plan Comments/Barriers to Learning: Bag Press Operator Clinican/Clinical Fellow: No Supervisory Statement: N/A Speech Language Pathologist: Carol Wilcox M.A., [facility]MANAGER PROGRESSIVE CARE
== END 2025-03-14 15:41 | disposition still patient (30) ==
LOC: HO.SH 12:55
PROVIDERS: PCP Internal Medicine; Visit Provider Psychiatry & Neurology Neurology
DX: R13.10 Dysphagia, unspecified (principal); R49.0 Dysphonia
CPT/HCPCS: 92524